=== PATIENT | male | born 2000 | race African-American/Black ===

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

== ENCOUNTER 2020-05-24 22:29 | Emergency (ER) | payer OTHER ==
[2020-05-25] MEDS ORDERED: KETOROLAC 30 MG/ML 1ML VIAL ONE (00:58)
[2020-05-25] MEDS ORDERED: ONDANSETRON 4MG/2ML VIAL ONE (00:58)
[2020-05-25] MEDS ORDERED: ONDANSETRON 4MG/2ML VIAL As Ordered ONE (00:58)
[2020-05-25] MEDS ORDERED: KETOROLAC 30 MG/ML 1ML VIAL As Ordered ONE (00:58)
[2020-05-25] MEDS ORDERED: ISOVUE-370 76% 100ML VIAL As Ordered ONE (02:07)
[2020-05-25] MEDS ORDERED: OXYCODONE/APAP 5MG/325MG(BULK FOR ED) 1 TABLET ONE (03:39)
[2020-05-25] MEDS ORDERED: OXYCODONE/APAP 5MG/325MG(BULK FOR ED) 1 TABLET As Ordered ONE (03:39)
[2020-05-25] MEDS ORDERED: TAMSULOSIN 0.4 MG CAP ONE (03:39)
[2020-05-25] MEDS ORDERED: TAMSULOSIN 0.4 MG CAP As Ordered ONE (03:39)
[2020-07-10 11:07] LABS: AMORPHOUS SEDIMENT SMALL (NEGATIVE); APPEARANCE, URINE CLOUDY (CLEAR); BACTERIA, URINE AUTO NEGATIVE (NEGATIVE); BILIRUBIN, URINE AUTO NEGATIVE (NEGATIVE); BLOOD, URINE BLOOD NEGATIVE (NEGATIVE); COLOR, URINE YELLOW (YELLOW); GLUCOSE, URINE (UA) AUTO NEGATIVE (NEGATIVE); KETONE, URINE AUTO NEGATIVE (NEGATIVE); LEUKOCYTE ESTERASE, URINE AUTO NEGATIVE (NEGATIVE); MUCUS, URINE SMALL (NEGATIVE); NITRITE, URINE AUTO NEGATIVE (NEGATIVE); PROTEIN, URINE AUTO 1+ mg/dL (NEGATIVE); RBC, URINE AUTO 3 /HPF (0-3); SPECIFIC GRAVITY URINE AUTO 1.023 (1.002-1.035); SQUAMOUS EPITHELIAL CELL UR AU 0 /HPF (0-6); UROBILINOGEN, URINE AUTO 0.2 mg/dL (0.0-2.0); WBC, URINE AUTO 0 /HPF (0-3)
[2020-07-10 11:32] LABS: BASO % 0.3 % (0.0-1.0); EOS % 0.1 % (0.0-3.0); HEMATOCRIT 45.1 % (42.0-52.0); HEMOGLOBIN 15.4 g/dl (13.5-17.5); LYMPH # 1.3 10^3/uL (1.5-5.0); LYMPH % 14.2 % (24.0-44.0); MEAN CORPUSCULAR HEMOGLOBIN 26.5 pg (27.0-33.0); MEAN CORPUSCULAR HGB CONC 34.1 g/dl (32.0-36.5); MEAN CORPUSCULAR VOLUME 77.5 fl (80.0-96.0); MONO # 0.4 10^3/uL (0.0-0.8); NEUTROPHILS # 7.3 10^3/uL (1.5-8.5); NEUTROPHILS % 81.2 % (36.0-66.0); PLATELET COUNT, AUTOMATED 197 10^3/uL (150-450); RED BLOOD COUNT 5.82 10^6/uL (4.30-6.10)
[2020-07-19 07:57] LABS: ALBUMIN 5.1 GM/DL (3.2-5.2); ALT/SGPT 14 U/L (12-78); BILIRUBIN,DIRECT 0.1 MG/DL (0.0-0.2); BILIRUBIN,TOTAL 0.5 MG/DL (0.2-1.0); BLOOD UREA NITROGEN 17 MG/DL (7-18); CALCIUM LEVEL 9.8 MG/DL (8.5-10.1); CARBON DIOXIDE LEVEL 28 MEQ/L (21-32); CHLORIDE LEVEL 103 MEQ/L (98-107); CREATININE FOR GFR 1.09 MG/DL (0.70-1.30); GLUCOSE, FASTING 105 MG/DL (70-100); LIPASE 88 U/L (73-393); POTASSIUM SERUM 3.5 MEQ/L (3.5-5.1); SODIUM LEVEL 137 MEQ/L (136-145); TOTAL PROTEIN 8.9 GM/DL (6.4-8.2)
== END 2020-05-25 03:30 | disposition home or self-care (01) ==
LOC: M ED 22:29
DX: N20.1 Calculus of ureter (principal); R11.2 Nausea with vomiting, unspecified
CPT/HCPCS: 74177; 80048; 80076; 81001; 83690; 85025; 87086; 96361; 96374; 96375; 99283; J1885; J2405; Q9967